=== PATIENT | male | born 1950 | race Caucasian/White ===

== ENCOUNTER 2021-06-14 12:20 | Emergency (ER) | payer OTHER ==
[2021-06-14 13:23] LABS: BASO # 0.03 K/mm3 (0.02-0.10); EOS % 1.1 % (0.0-4.0); HEMATOCRIT 45.7 % (42.0-52.0); HEMOGLOBIN 14.9 g/dL (13.5-18.0); LYMPH# 1.43 K/mm3 (1.50-4.00); MEAN CELL VOLUME 91 fl (78-100); MEAN CORPUSCULAR HEMOGLOBIN 30 pg (27-31); MEAN CORPUSCULAR HGB CONC 33 g/dL (33-37); MEAN PLATELET VOLUME 10.3 fl (7.4-10.4); MONO # 0.81 K/mm3 (0.20-0.80); NEU # 6.55 K/mm3 (1.40-6.50); PLATELET COUNT 255 K/mm3 (130-400); RED BLOOD COUNT 5.02 M/mm3 (4.20-5.60)
[2021-06-14 13:31] LABS: ALBUMIN 3.9 g/dL (3.4-4.8)
[2021-06-14 13:32] LABS: POTASSIUM 4.6 mmol/L (3.5-5.1); SODIUM 141 mmol/L (136-145)
[2021-06-14 13:33] LABS: CALCIUM 8.7 mg/dL (8.3-10.5)
[2021-06-14 13:34] LABS: GLUCOSE 90 mg/dL (75-110); TOTAL PROTEIN 6.3 g/dL (6.2-8.1)
[2021-06-14 13:35] LABS: CARBON DIOXIDE 24 mmol/L (23-31)
[2021-06-14 13:36] LABS: TOTAL BILIRUBIN 0.4 mg/dL (0.2-1.2)
[2021-06-14 13:39] LABS: AST-SGOT 8 U/L (5-34)
[2021-06-14 13:40] LABS: ALT/SGPT 7 U/L (0-55)
[2021-06-14 13:41] LABS: MAGNESIUM 1.65 mg/dL (1.60-2.60)
[2021-06-14 13:49] LABS: TROPONIN-I < 0.030 ng/mL (<0.030)
[2021-06-14 14:08] LABS: URINE WBC 0 /hpf (0-3)
[2021-06-14 15:18] LABS: URINE APPEARANCE CLEAR; URINE COLOR YELLOW
[2021-06-14 15:19] LABS: URINE BILIRUBIN NEGATIVE (NEGATIVE); URINE BLOOD NEGATIVE (NEGATIVE); URINE GLUCOSE NEGATIVE (NEGATIVE); URINE KETONE NEGATIVE (NEGATIVE); URINE LEUKOCYTE ESTERASE NEGATIVE (NEGATIVE); URINE MUCUS PRESENT (NOT PRESENT); URINE NITRATE NEGATIVE (NEGATIVE); URINE PROTEIN(semi-quant) NEGATIVE (NEGATIVE); URINE UROBILINOGEN NORMAL (NORMAL)
[2021-06-14 15:55] VITALS: BP 121/80
== END 2021-06-14 15:55 | disposition home or self-care (01) ==
LOC: ED 12:20
PROVIDERS: Physician Assistant
DX: R55 Syncope and collapse (principal); R94.4 Abnormal results of kidney function studies; F17.200 Nicotine dependence, unspecified, uncomplicated; Z28.311 Partially vaccinated for COVID-19